=== PATIENT | male | born 1955 | race Caucasian/White ===

== ENCOUNTER 2021-10-23 10:58 | Emergency (ER) | payer MEDICARE, SELFPAY ==
--- NOTE | 2021-10-23 11:04 | ED.SKABFB ---
HPI - Skin/Abscess/Foreign Bdy General Chief complaint: Skin/Abscess/Foreign Body Stated complaint: Left Leg/Skin Problem Time Seen by Provider: 10/23/21 11:03 Source: patient Mode of arrival: ambulatory Limitations: no limitations History of Present Illness HPI narrative: Mr. Friedman is a 66-year-old male patient presenting to the clinic today with complaints of left leg swelling/possible infection. He reports that he was setting on a vinyl chair and this had ripped some of his skin off of the side of his leg. He reports that his skin is draining a yellowish-brown discharge. States that he has had a history of cellulitis in this leg for approximately 2 years off and on. States he supposed to wear compressions stockings and has not been wearing them. Related Data Home Medications Medication Instructions Recorded Confirmed allopurinol 100 mg tablet tablet 10/23/21 benazepril 40 mg tablet tablet 10/23/21 carvedilol 25 mg tablet tablet 10/23/21 clonidine HCl 0.1 mg tablet tablet 10/23/21 clopidogrel 75 mg tablet tablet 10/23/21 donepezil 10 mg tablet tablet 10/23/21 10/23/21 glipizide 5 mg tablet tablet 10/23/21 hydralazine 100 mg tablet tablet 10/23/21 pravastatin 40 mg tablet tablet 10/23/21 sertraline 100 mg tablet mg 10/23/21 sertraline 100 mg tablet tablet 10/23/21 trazodone 150 mg tablet tablet 10/23/21 Allergies Allergy/AdvReac Type Severity Reaction Status Date / Time Penicillins Allergy Itching Verified 10/23/21 11:22 Review of Systems Review of Systems: Pertinent positives per HPI. Patient denies any fever, chills, rash, headache, visual changes, dizziness, cough, runny nose, sore throat, shortness of breath, chest pain, palpitations, nausea, vomiting, diarrhea, constipation, abdominal pain, or any urinary issues. PMFSH Comments At the time of my signature, I reviewed and agree with the nursing past medical, surgical, social, and family history. There is no relevant family history pertinent to the patient complaint. Exam Narrative: General: Well-developed, well nourished, in no apparent distress Head: Normocephalic, atraumatic. Cardio: Regular rate and rhythm, s1 and s2 normal, no murmur appreciated. Resp: Clear to auscultation bilaterally, no rhonchi, rales, wheezing or rubs. Musculoskeletal: No deformity, non-tender to palpation, no induration felt with palpation, mild erythema and yellowish-brownish discharge coming from the venous stasis ulcers to the lateral left lower leg, swelling 1+ pitting edema to the left lower extremity, 3 venous stasis wounds measuring 8x6cm, 4x4cm, 1x1cm, grossly normal range of motion, muscle strength strong and equal, peripheral pulse strong, no cyanosis, normal gait and station Course Course Emergency Course: Portions of this record may have been created with voice recognition software. Level of Care: Express Care Visit Vital Signs Vital signs: Vital signs reviewed MDM - Skin/Abscess/Foreign Bdy MDM Narrative Medical decision making narrative: At the time of visit patient was resting comfortably on the exam table. He has what appears to be venous stasis ulcers to the left lower leg with 1+ pitting edema and mild redness. Venous stasis ulcers were cleansed with care and Telfa's were applied over the wounds in the clinic as they are weeping yellowish-brown discharge. I will prescribe a course of doxycycline to cover any bacterial infection and advised him to keep this elevated and wear his compression things as prescribed. I feel that the patient would benefit from having an Unna boot placed however unfortunately we do not have this availability in the clinic. I will have the patient follow-up with his PCP this week or sooner if symptoms worsen. He voiced understanding of discharge instructions and agrees to the treatment plan. Differential Diagnosis Differential diagnosis: Likely cellulitis and other (Venous insufficiency, venous stasis ulcers) Disch
[2021-10-23 11:09] VITALS: BP 150/90; RESP 16; TEMP 36.8; O2SAT 99
== END 2021-10-23 11:37 | disposition home or self-care (01) ==
PROVIDERS: Emergency Provider Nurse Practitioner Family; PCP Internal Medicine
DX: L08.9 Local infection of the skin and subcutaneous tissue, unspecified (principal); B96.89 Other specified bacterial agents as the cause of diseases classified elsewhere; I87.2 Venous insufficiency (chronic) (peripheral); L97.929 Non-pressure chronic ulcer of unspecified part of left lower leg with unspecified severity
CPT/HCPCS: 99213; G0463